=== PATIENT | female | born 2000 | race Two or more races ===

== ENCOUNTER → 2024-01-11 | Emergency (ER) | payer MEDICAID ==
[~2024-01-11] VITALS: Ht 162.6 cm; Wt 97.7 kg
[2024-01-11 20:52] VITALS: TEMP 97.7
[2024-01-11 23:56] LABS: TROPONIN I-HIGH SENSITIVITY Less Than 4 ng/L (<51)
[2024-01-12 00:24] VITALS: BP 122/80; PULSE 85; RESP 16; O2SAT 98
[2024-01-12] MEDS: IBUPROFEN 600 MG TABLET PO ONE (00:28)
[2024-01-12] MEDS: MAG HYDROX/ALUMINUM HYD/SIMETH ES 30 ML SUSPENSION UDCUP PO ONE (00:28)
== END | disposition still patient (30) ==
LOC: EMS 20:47
DX: R07.89 Other chest pain (principal); F31.9 Bipolar disorder, unspecified; F41.9 Anxiety disorder, unspecified
CPT/HCPCS: 84484; 93005; 99284